=== PATIENT | male | born 1995 | race Two or more races ===

== ENCOUNTER 2016-03-18 17:35 | Emergency (ER) | payer OTHER ==
[~2016-03-18] VITALS: Ht 185.4 cm; Wt 99.8 kg
[2016-03-18 18:45] VITALS: BP 132/63
[2016-03-18] MEDS ORDERED: KETOROLAC TROMETH 60MG/2ML VIAL IM ONE (21:00)
== END 2016-03-18 22:15 | disposition home or self-care (01) ==
LOC: ER 17:49
DX: S76.912A Strain of unspecified muscles, fascia and tendons at thigh level, left thigh, initial encounter (principal); X50.3XXA Overexertion from repetitive movements, initial encounter; Y93.02 Activity, running; Y99.9 Unspecified external cause status; Y92.89 Other specified places as the place of occurrence of the external cause
CPT/HCPCS: 72170; 73552; 99284; J1885